=== PATIENT | male | born 1945 ===

== ENCOUNTER 2018-01-26 17:32 | Inpatient (IN) | payer MEDICARE, BC ==
[2018-01-26 17:38] VITALS: BMI 22.7
[2018-01-26 18:48] LABS: BASO % 0.4 % (0.0-2.0); EOS % 0.5 % (0.0-4.0); HEMOGLOBIN 14.4 g/dL (12.0-18.0); LYMPH # 1.8 K/uL (1.0-4.3); LYMPH % 19.3 % (20.0-40.0); MEAN CELL VOLUME 91.2 fl (80.0-94.0); MEAN CORPUSCULAR HEMOGLOBIN 30.6 pg (27.0-31.0); MEAN CORPUSCULAR HGB CONC 33.5 g/dL (33.0-37.0); MEAN PLATELET VOLUME 8.8 fl (7.2-11.7); MONO # 0.7 K/uL (0.0-0.8); MONO % 7.3 % (0.0-10.0); NEUT # 6.6 K/uL (1.8-7.0); NEUT % 72.5 % (50.0-75.0); RBC 4.71 Mil/uL (4.40-5.90); RED CELL DISTRIBUTION WIDTH 13.9 % (11.5-14.5); WHITE BLOOD COUNT 9.1 K/uL (4.8-10.8)
[2018-01-26 19:00] LABS: PARTIAL THROMBOPLASTIN TIME 42.2 Seconds (25.6-37.1); PROTHROMBIN TIME 10.8 Seconds (9.8-13.1)
[2018-01-26 19:03] LABS: ALB/GLOB RATIO 1.4 (1.0-2.1); ALBUMIN 3.8 g/dL (3.5-5.0); ALT/SGPT 47 U/L (21-72); AST/SGOT 47 U/L (17-59); BLOOD UREA NITROGEN 23 mg/dl (9-20); CALCIUM 9.5 mg/dL (8.4-10.2); GFR AFRICAN-AMERICAN > 60; GFR NON-AFRICAN AMERICAN 59
[2018-01-26 19:14] LABS: B-TYPE NATRIURETIC PEPTIDE 656 pg/ml (0-900)
--- NOTE | 2018-01-26 19:52 | ED PDOC ---
Syncope/Near Syncope/Dizziness Time Seen by Provider: 01/26/18 17:48 Chief Complaint (Nursing): Dizziness/Lightheaded Chief Complaint (Provider): syncope and palpitation History Per: Patient History/Exam Limitations: no limitations Onset/Duration Of Symptoms: Other (3 months) Current Symptoms Are (Timing): Still Present Additional Complaint(s): 72 year old male presents to the ED complaining of syncope and palpitation onset for 3 months. Patient states of 2 episodes of syncope with fast heat beat. Patient has generalized malaise, weakness, and fatigue when he takes a couple of steps. Denies chest pain or shortness of breath. PMD: Rich Sanchez Past Medical History Reviewed: Historical Data, Nursing Documentation, Vital Signs Vital Signs: Last Vital Signs Temp 98.1 F 01/26/18 17:38 Pulse 86 01/26/18 18:58 Resp 20 01/26/18 18:34 BP 148/98 H 01/26/18 18:58 Pulse Ox 100 01/26/18 18:34 - Medical History PMH: HTN - Surgical History Surgical History: No Surg Hx - Family History Family History: States: No Known Family Hx - Social History Current smoker - smoking cessation education provided: No - Home Medications Home Medications: Ambulatory Orders Medication Instructions Recorded Aspirin [Ecotrin] 81 mg PO DAILY 01/26/18 Cholecalciferol (Vitamin D3) 2,000 unit PO DAILY 01/26/18 [Vitamin D3] Clopidogrel [Plavix] 75 mg PO DAILY 01/26/18 Metoprolol Tartrate [Lopressor] 50 mg PO DAILY 01/26/18 Nitroglycerin [Nitrostat] 0.4 mg PO PRN PRN 01/26/18 - Allergies Allergies/Adverse Reactions: Allergies Allergy/AdvReac Type Severity Reaction Status Date / Time iodine Allergy RASH Verified 01/26/18 17:42 Review of Systems ROS Statement: Except As Marked, All Systems Reviewed And Found Negative (As per HPI, otherwise negative) Constitutional: Positive for: Weakness, Malaise Cardiovascular: Positive for: Palpitations. Negative for: Chest Pain Respiratory: Negative for: SOB with Exertion Neurological: Positive for: Other (syncope) Physical Exam - Reviewed Nursing Documentation Reviewed: Yes Vital Signs Reviewed: Yes - Physical Exam Appears: Positive for: Well, No Acute Distress Head Exam: Positive for: ATRAUMATIC, NORMOCEPHALIC Skin: Positive for: Warm, Dry Eye Exam: Positive for: EOMI, PERRL ENT: Negative for: Pharyngeal Erythema, Tonsillar Exudate Neck: Positive for: Painless ROM, Supple Cardiovascular/Chest: Positive for: Chest Non Tender, Tachycardia. Negative for : Murmur Respiratory: Positive for: Normal Breath Sounds. Negative for: Respiratory Distress Gastrointestinal/Abdominal: Positive for: Soft. Negative for: Tenderness Back: Positive for: Normal Inspection. Negative for: Decreased ROM Extremity: Positive for: Normal ROM. Negative for: Pedal Edema, Deformity Lymphatic: Negative for: Adenopathy Neurologic/Psych: Positive for: Alert. Negative for: Motor/Sensory Deficits - Laboratory Results Result Diagrams: 01/28/18 04:30 01/28/18 04:30 - ECG ECG: Positive for: Interpreted By Me, Viewed By Me ECG Rhythm: Positive for: Normal QRS, Normal ST Segment, Sinus Rhythm Rate: 89 O2 Sat by Pulse Oximetry: 100 (RA) Pulse Ox Interpretation: Normal - Radiology X-Ray: Interpreted by Me X-Ray Interpretation: No Acute Disease - Critical Care Total Time (In Min): 30 Documented Critical Care: Time excludes all time spent performint seperately billable procedures Medical Decision Making Medical Decision Making: Time: 1803 Initial Impression: syncope and palpitations Initial Plan: --BBK --EKG --B-type Natriuretic peptide --CMP --Magnesium --Phosphorous --Thyroid Stimulating hormone --Troponin I Q8H --ED Urine dipstick --CBC w/ Differential --PTT --Prothrombin Time --Chest portable --Glucose, POC --Cardizem 125mg IV 5 mg/hr --Lopressor 25mg --Reevaluation Time: 1829 Patient found to be in stable V-tach. He still has persistent light headedness. Denies chest pain of shortness of breath. Given syringe to blow into for vasalva maneuver which successfully converted patient to sinus. (?aberrant SVT or accessory path) Time: 1844 Repeated EKG presented to be sinus 89 bpm, normal ORS, normal ST segments. Dr. Padgett, hand mica plate layer contacted and discussed the findings and events. He advised patient to be started only on Metoprolol 25 mg PO. Diltiazem cancelled. Pt's labs unremarkable. DW Dr Bales for ICU placement for episodes of sustained Vtach. Scribe Attestation: Documented by Isabel Madera, acting as a scribe for Ana Laura Parra MD Provider Scribe Attestation: All medical record entries made by the Scribe were at my direction and personally dictated by me. I have reviewed the chart and agree that the record accurately reflects my personal performance of the history, physical exam, medical decision making, and the department course for this patient. I have also personally directed, reviewed, and agree with the discharge instructions and disposition. Disposition - Clinical Impression Clinical Impression: Paroxysmal A-fib, Syncope, Tachyarrhythmia Counseled Patient/Family Regarding: Studies Performed, Diagnosis - Disposition Disposition Time: 19:00 Condition: CRITICAL - Pt Status Changed To: Hospital Disposition Of: Inpatient - Admit Certification Admit to Inpatient:: After my assessment, the patient will require hospitalization for at least two midnights. This is because of the severity of symptoms shown, intensity of services needed, and/or the medical risk in this patient being treated as an outpatient. - POA Present On Arrival: Falls Or Trauma
--- NOTE | 2018-01-26 20:18 | CP.PCM.HP ---
History of Present Illness - History of Present Illness History of Present Illness: CC/Reason for ICU: V tach, syncope This is a 72 y/o male with HTN and likely CAD with possible recent NJ who comes in with palpitations and syncopal episodes. States he has had issues with syncope intermittently since about 2011, but then in Sep 2017, he had severe CP one day. He did not go to the ER at the time, but then went to a doctor who told him he likely had an NJ. Some cardiac w/u including possibly an echo was done at the time. Patient is unaware of results. Since about that time, the episodes of palpitations and syncope have been increasing; last 2 weeks he has had multiple episodes, and today he had two episodes, so he called EMS who brought him here. In ER patient was in a fib/flutter initially but then had an episode of V tach, then went into NSR. Patient states he has not had any CP/SOB with these episodes. He denies onset of symptoms with any particular activity. He has not fallen and hit his head. ROS: 14 systems reviewed, negative other than HPI MHx: HTN, likely CAD/NJ, possibly PAF SHx: None Allergies: CT dye Medications: Per med rec Family Hx: Cardiac disease runs strongly on both sides of family Social Hx: Lives alone, no tobacco, no EtOH Patient has not immediate family/surrogate dec maker nearby. Stated that he would like the following people notified with emergencies: Sue: [phone] Suyapa: [phone] Present on Admission - Present on Admission Any Indicators Present on Admission: No Past Patient History - Past Social History Smoking Status: Never Smoked - CARDIAC Hx Hypertension: Yes - PSYCHIATRIC Hx Substance Use: No - SURGICAL HISTORY Hx Surgeries: No - ANESTHESIA Hx Anesthesia: No Meds Allergies/Adverse Reactions: Allergies Allergy/AdvReac Type Severity Reaction Status Date / Time iodine Allergy RASH Verified 01/26/18 17:42 Physical Exam - Constitutional Appears: No Acute Distress - Head Exam Head Exam: ATRAUMATIC, NORMOCEPHALIC - Eye Exam Eye Exam: EOMI, PERRL - ENT Exam ENT Exam: Mucous Membranes Moist - Neck Exam Neck exam: Positive for: Full Rom - Respiratory Exam Respiratory Exam: Clear to Auscultation Bilateral, NORMAL BREATHING PATTERN - Cardiovascular Exam Cardiovascular Exam: REGULAR RHYTHM, +S1, +S2 - GI/Abdominal Exam GI & Abdominal Exam: Normal Bowel Sounds, Soft - Extremities Exam Extremities exam: Positive for: full ROM, normal inspection - Neurological Exam Neurological exam: Alert, CN II-XII Intact, Oriented x3 - Psychiatric Exam Psychiatric exam: Normal Affect, Normal Mood - Skin Skin Exam: Dry, Warm Results - Vital Signs Recent Vital Signs: Last Vital Signs Temp 98.1 F 01/26/18 17:38 Pulse 89 01/26/18 19:54 Resp 20 01/26/18 18:34 BP 148/98 H 01/26/18 18:58 Pulse Ox 100 01/26/18 19:54 - Labs Result Diagrams: 01/26/18 18:44 01/26/18 18:44 Labs: Laboratory Results - last 24 hr 01/26/18 01/26/18 01/26/18 18:07 18:35 18:44 WBC RBC Hgb Hct MCV MCH MCHC RDW Plt Count MPV Neut % (Auto) Lymph % (Auto) [place] % (Auto) Eos % (Auto) Baso % (Auto) Neut # (Auto) Lymph # (Auto) [place] # (Auto) Eos # (Auto) Baso # (Auto) PT INR APTT Sodium 141 Potassium 4.0 Chloride 104 Carbon Dioxide 24 Anion Gap 17 BUN 23 H Creatinine 1.2 Est GFR ( Amer) > 60 Est GFR (Non-Af Amer) 59 POC Glucose (mg/dL) 93 Random Glucose 95 Calcium 9.5 Phosphorus 2.8 Magnesium 2.0 Total Bilirubin 0.3 AST 47 ALT 47 Alkaline Phosphatase 67 Troponin I 0.0230 NT-Pro-B Natriuret Pep 656 Total Protein 6.5 Albumin 3.8 Globulin 2.7 Albumin/Globulin Ratio 1.4 TSH 3rd Generation 3.69 Blood Type O POSITIVE Antibody Screen Negative BBK History Checked No verified bt 01/26/18 01/26/18 18:44 18:44 WBC 9.1 RBC 4.71 Hgb 14.4 Hct 42.9 MCV 91.2 MCH 30.6 MCHC 33.5 RDW 13.9 Plt Count 286 MPV 8.8 Neut % (Auto) 72.5 Lymph % (Auto) 19.3 L [place] % (Auto) 7.3 Eos % (Auto) 0.5 Baso % (Auto) 0.4 Neut # (Auto) 6.6 Lymph # (Auto) 1.8 [place] # (Auto) 0.7 Eos # (Auto) 0.0 Baso # (Auto) 0.0 PT 10.8 INR 1.0 APTT 42.2 H Sodium Potassium Chloride Carbon Dioxide Anion Gap BUN Creatinine Est GFR ( Amer) Est GFR (Non-Af Amer) POC Glucose (mg/dL) Random Glucose Calcium Phosphorus Magnesium Total Bilirubin AST ALT Alkaline Phosphatase Troponin I NT-Pro-B Natriuret Pep Total Protein Albumin Globulin Albumin/Globulin Ratio TSH 3rd Generation Blood Type Antibody Screen BBK History Checked - EKG Data EKG Interpreted by: Myself - EKG Data EKG comments: rhythm strip showing monomophic V tach, EKG showing a flutter, and another showing NSR - Imaging and Cardiology Chest x-ray Status: Image reviewed by me (No acute findings) Assessment & Plan (1) Ventricular tachyarrhythmia Assessment and Plan: 72 y/o male with HTN and very likely CAD who comes in with A flutter which then degenerated briefly to what appeared to be V tach. -Admit ICU -Serial troponins -Continue metoprolol 25 PO BID -Cont ASA, Plavix; Patient should likely be on a statin as well -Echo in AM -Cardiology consult in AM -Cont home BP medications -SQ lovenox for DVT PPx Status: Acute (2) CAD (coronary artery disease) Status: Acute (3) HTN (hypertension) Status: Acute (4) DVT prophylaxis Status: Acute
--- NOTE | 2018-01-26 22:30 | CP.PCM.CON ---
History of Present Illness - History of Present Illness History of Present Illness: SYNCOPAL EPISODE TODAY X 1 WITH PALP. PT HAD 1 PRIOR IN 2011. WAS TOLD HE HAD AFIB IN 2011 AND STARTED ON BYSTOLIC. RECURRENT SYMPTOMS WITH ASSOCIATED CHEST PRESSURE 4 MONTHS AGO, PT THEN STARTED ON METOP 50 DAILY, ASA, PLAVIX AND SL NTG. ABOUT 1 WEEK AGO PT HAD CP RELIEVED BY NITRO. WHILE IN ER PT WAS IN AFIB WITH VARIABLE RATE. HE THEN HAD A SUSTAINED RAPID WCT AT 270 BPM. THIS RESOLVED ON OWN. PT WAS SYMPTOMATIC WITH DIZZINESS AND PALP. TELE STRIP IS SUSPICIOUS FOR VT. Past Patient History - Past Medical History & Family History Past Medical History?: Yes - Past Social History Smoking Status: Never Smoked - CARDIAC Hx Cardiac Disorders: Yes Hx Atrial Fibrillation: Yes Hx Hypertension: Yes - PULMONARY Hx Respiratory Disorders: No - NEUROLOGICAL Hx Syncope: Yes - HEENT Hx HEENT Problems: Yes Other/Comment: Uses eye glasses. - RENAL Hx Chronic Kidney Disease: No - ENDOCRINE/METABOLIC Hx Endocrine Disorders: No - HEMATOLOGICAL/ONCOLOGICAL Hx Blood Disorders: No - INTEGUMENTARY Hx Dermatological Problems: No - MUSCULOSKELETAL/RHEUMATOLOGICAL Hx Musculoskeletal Disorders: No Hx Falls: Yes - GASTROINTESTINAL Hx Gastrointestinal Disorders: No - GENITOURINARY/GYNECOLOGICAL Hx Genitourinary Disorders: No - PSYCHIATRIC Hx Psychophysiologic Disorder: No Hx Substance Use: No - SURGICAL HISTORY Hx Surgeries: No - ANESTHESIA Hx Anesthesia: No Hx Anesthesia Reactions: No Hx Malignant Hyperthermia: No Has any member of the family had a problem w/ anesthesia?: No Meds Allergies/Adverse Reactions: Allergies Allergy/AdvReac Type Severity Reaction Status Date / Time iodine Allergy RASH Verified 01/26/18 17:42 - Medications Medications: Current Medications Aspirin (Aspirin Chewable) 81 mg PO DAILY [facility] Clopidogrel Bisulfate (Plavix) 75 mg PO DAILY [facility] Enoxaparin Sodium (Lovenox) 40 mg SC DAILY [facility] PRN Reason: Protocol Metoprolol Tartrate (Lopressor) 25 mg PO Q12 [facility] Results - Vital Signs Recent Vital Signs: Last Vital Signs Temp 98.4 F 01/26/18 21:49 Pulse 65 01/26/18 21:52 Resp 18 01/26/18 21:52 BP 125/84 01/26/18 21:49 Pulse Ox 100 01/26/18 21:52 - Labs Result Diagrams: 01/26/18 18:44 01/26/18 18:44 Labs: Laboratory Results - last 24 hr 01/26/18 01/26/18 01/26/18 18:07 18:35 18:44 WBC RBC Hgb Hct MCV MCH MCHC RDW Plt Count MPV Neut % (Auto) Lymph % (Auto) [place] % (Auto) Eos % (Auto) Baso % (Auto) Neut # (Auto) Lymph # (Auto) [place] # (Auto) Eos # (Auto) Baso # (Auto) PT INR APTT Sodium 141 Potassium 4.0 Chloride 104 Carbon Dioxide 24 Anion Gap 17 BUN 23 H Creatinine 1.2 Est GFR ( Amer) > 60 Est GFR (Non-Af Amer) 59 POC Glucose (mg/dL) 93 Random Glucose 95 Calcium 9.5 Phosphorus 2.8 Magnesium 2.0 Total Bilirubin 0.3 AST 47 ALT 47 Alkaline Phosphatase 67 Troponin I 0.0230 NT-Pro-B Natriuret Pep 656 Total Protein 6.5 Albumin 3.8 Globulin 2.7 Albumin/Globulin Ratio 1.4 TSH 3rd Generation 3.69 Blood Type O POSITIVE Antibody Screen Negative BBK History Checked No verified bt 01/26/18 01/26/18 18:44 18:44 WBC 9.1 RBC 4.71 Hgb 14.4 Hct 42.9 MCV 91.2 MCH 30.6 MCHC 33.5 RDW 13.9 Plt Count 286 MPV 8.8 Neut % (Auto) 72.5 Lymph % (Auto) 19.3 L [place] % (Auto) 7.3 Eos % (Auto) 0.5 Baso % (Auto) 0.4 Neut # (Auto) 6.6 Lymph # (Auto) 1.8 [place] # (Auto) 0.7 Eos # (Auto) 0.0 Baso # (Auto) 0.0 PT 10.8 INR 1.0 APTT 42.2 H Sodium Potassium Chloride Carbon Dioxide Anion Gap BUN Creatinine Est GFR ( Amer) Est GFR (Non-Af Amer) POC Glucose (mg/dL) Random Glucose Calcium Phosphorus Magnesium Total Bilirubin AST ALT Alkaline Phosphatase Troponin I NT-Pro-B Natriuret Pep Total Protein Albumin Globulin Albumin/Globulin Ratio TSH 3rd Generation Blood Type Antibody Screen BBK History Checked Assessment & Plan (1) Ventricular tachyarrhythmia Status: Acute (2) Angina pectoris, variant Status: Acute (3) Paroxysmal A-fib Status: Acute (4) Palpitations Status: Acute (5) Syncope Status: Acute (6) HTN (hypertension) Status: Acute (7) Allergy to iodine Status: Acute - Assessment and Plan (Free Text) Plan: CONTINUE ICU CARE METOPROLOL 25 Q12 MAG 2GM IV REVIEWED TELE STRIPS. WCT QRS AROUND 150MS (MOST CW VT). MONITOR LYTES START FULL DOSE ANTICOAG CATH ON SUNDAY TO RULE OUT CAD ECHO ON SUNDAY TO EVAL EF NEEDS PREMED FOR CATH ON SUNDAY. 95 MIN ICU TIME
[2018-01-26] MEDS ORDERED: Magnesium Sulfate 2 gm/50 ml 2 GM/50 ML BAG IVPB ONE (22:59)
[2018-01-27 03:24] LABS: BLOOD UREA NITROGEN 19 mg/dl (9-20); CALCIUM 8.7 mg/dL (8.4-10.2); GFR AFRICAN-AMERICAN > 60; GFR NON-AFRICAN AMERICAN > 60
[2018-01-27 06:02] LABS: HEMOGLOBIN 13.9 g/dL (12.0-18.0); MEAN CELL VOLUME 91.7 fl (80.0-94.0); MEAN CORPUSCULAR HEMOGLOBIN 30.5 pg (27.0-31.0); MEAN CORPUSCULAR HGB CONC 33.2 g/dL (33.0-37.0); RBC 4.55 Mil/uL (4.40-5.90); RED CELL DISTRIBUTION WIDTH 13.6 % (11.5-14.5); WHITE BLOOD COUNT 7.5 K/uL (4.8-10.8)
--- NOTE | 2018-01-27 07:18 | CP.PCM.PN ---
Subjective - Date & Time of Evaluation Date of Evaluation: 01/27/18 Time of Evaluation: 07:14 - Subjective Subjective: pt states he feels improved, stronger than yesterday, all symptoms resolved no cp, no sob hD stable in NSR rate 60-65 nad Objective - Vital Signs/Intake and Output Vital Signs (last 24 hours): Temp Pulse Resp BP Pulse Ox 98.0 F 62 20 114/66 96 01/27/18 04:00 01/27/18 06:00 01/27/18 06:00 01/27/18 06:00 01/27/18 06:00 Intake and Output: 01/27/18 01/27/18 06:59 18:59 Intake Total 50 Output Total 400 Balance -350 Vitals Reviewed GEN: WDWN, alert, cooperative HEENT: NCAT, PERRL, EOMI HEART: RRR, +S1S2, NO MRG LUNG: CTAB, NO WRR ABD: soft, NT, ND, No HSM, No masses EXT: normal pedal pulses, normal capillary refill NEURO: awake, alert, no focal deficits SKIN: warm, dry PSYCH: normal mood, normal affect - Medications Medications: Current Medications Aspirin (Aspirin Chewable) 81 mg PO DAILY [facility] Clopidogrel Bisulfate (Plavix) 75 mg PO DAILY [facility] Enoxaparin Sodium (Lovenox) 70 mg SC Q12 [facility] PRN Reason: Protocol Metoprolol Tartrate (Lopressor) 25 mg PO Q12 [facility] - Labs Labs: 01/27/18 04:25 01/27/18 02:36 PT 10.8 Seconds (9.8-13.1) 01/26/18 18:44 INR 1.0 (0.9-1.2) 01/26/18 18:44 APTT 42.2 Seconds (25.6-37.1) H 01/26/18 18:44 Assessment and Plan - Assessment and Plan (Free Text) Plan: 72M PMH HTN and likely CAD with possible? recent ID who presented with palpitations and syncopal episodes. Pt has had hx of syncope intermittently since about 2011. Sep 2017, he had severe CP however did not go to the ER at the time, but then went to a doctor who told him he likely had an ID. No known cardiac work up. Since then, pt has had increased frequency of palpitations and syncope; last 2 weeks he has had multiple episodes, and prior to admission he had two episodes, so he called EMS who brought him here. In ER patient was in a fib/flutter initially but then had an episode of V tach, then converted to NSR. Patient states he has not had any CP/SOB with these episodes. He denies onset of symptoms with any particular activity. He has not fallen and hit his head. (1) Ventricular tachyarrhythmia -Serial troponins, neg x2 -Continue metoprolol 25 PO q12 -Cont ASA, Plavix, statin -Echo in AM -Cardiology consult in AM - Cath SUN - FULL AC for now with Lovenox - montior electrolytes (2) CAD (coronary artery disease) Status: Acute - cath on Sunday to evaluate (3) HTN (hypertension) Status: Acute - continue Lopressor (4) DVT prophylaxis pt on full AC
--- NOTE | 2018-01-27 07:32 | CP.PCM.CON ---
History of Present Illness - History of Present Illness History of Present Illness: 72 YOM with h/o CAD and HTN , came to ER with c/o dizziness and multiple episodes when he almost passed out. He resisted himself to go to hospital but when it felisha,e more frequent, he came to ER, where he had episodes of a fib- flutter and then a short burst of v-tach and then converted to SR. No CP, no fever or cough . He is now in SR and no ischemic changes in EKG and TNI, so far has been negative. Review of Systems - Review of Systems Systems not reviewed;Unavailable: Unstable Vital Signs - Constitutional Constitutional: As Per HPI - EENT Eyes: As Per HPI Nose/Mouth/Throat: As Per HPI - Cardiovascular Cardiovascular: Lightheadedness, Syncope - Respiratory Respiratory: As Per HPI - Gastrointestinal Gastrointestinal: As Per HPI - Genitourinary Genitourinary: As Per HPI - Reproductive: Male Reproductive:Male: As Per HPI - Musculoskeletal Musculoskeletal: As Per HPI Past Patient History - Past Medical History & Family History Past Medical History?: Yes - Past Social History Smoking Status: Never Smoked - CARDIAC Hx Cardiac Disorders: Yes Hx Atrial Fibrillation: Yes Hx Hypertension: Yes - PULMONARY Hx Respiratory Disorders: No - NEUROLOGICAL Hx Syncope: Yes - HEENT Hx HEENT Problems: Yes Other/Comment: Uses eye glasses. - RENAL Hx Chronic Kidney Disease: No - ENDOCRINE/METABOLIC Hx Endocrine Disorders: No - HEMATOLOGICAL/ONCOLOGICAL Hx Blood Disorders: No - INTEGUMENTARY Hx Dermatological Problems: No - MUSCULOSKELETAL/RHEUMATOLOGICAL Hx Musculoskeletal Disorders: No Hx Falls: Yes - GASTROINTESTINAL Hx Gastrointestinal Disorders: No - GENITOURINARY/GYNECOLOGICAL Hx Genitourinary Disorders: No - PSYCHIATRIC Hx Psychophysiologic Disorder: No Hx Substance Use: No - SURGICAL HISTORY Hx Surgeries: No - ANESTHESIA Hx Anesthesia: No Hx Anesthesia Reactions: No Hx Malignant Hyperthermia: No Has any member of the family had a problem w/ anesthesia?: No Meds Allergies/Adverse Reactions: Allergies Allergy/AdvReac Type Severity Reaction Status Date / Time iodine Allergy RASH Verified 01/26/18 17:42 - Medications Medications: Current Medications Aspirin (Aspirin Chewable) 81 mg PO DAILY [facility] Clopidogrel Bisulfate (Plavix) 75 mg PO DAILY [facility] Enoxaparin Sodium (Lovenox) 70 mg SC Q12 [facility] PRN Reason: Protocol Metoprolol Tartrate (Lopressor) 25 mg PO Q12 [facility] Physical Exam - Head Exam Head Exam: ATRAUMATIC - Eye Exam Pupil Exam: PERRL - ENT Exam ENT Exam: Mucous Membranes Moist - Neck Exam Neck exam: Positive for: Full Rom - Respiratory Exam Respiratory Exam: NORMAL BREATHING PATTERN - Cardiovascular Exam Cardiovascular Exam: Irregular Rhythm - Rectal Exam Rectal Exam: Deferred Results - Vital Signs Recent Vital Signs: Last Vital Signs Temp 98.0 F 01/27/18 04:00 Pulse 62 01/27/18 06:00 Resp 20 01/27/18 06:00 BP 114/66 01/27/18 06:00 Pulse Ox 96 01/27/18 06:00 - Labs Result Diagrams: 01/27/18 04:25 01/27/18 02:36 Labs: Laboratory Results - last 24 hr 01/26/18 01/26/18 01/26/18 18:07 18:35 18:44 WBC RBC Hgb Hct MCV MCH MCHC RDW Plt Count MPV Neut % (Auto) Lymph % (Auto) [place] % (Auto) Eos % (Auto) Baso % (Auto) Neut # (Auto) Lymph # (Auto) [place] # (Auto) Eos # (Auto) Baso # (Auto) PT INR APTT Sodium 141 Potassium 4.0 Chloride 104 Carbon Dioxide 24 Anion Gap 17 BUN 23 H Creatinine 1.2 Est GFR ( Amer) > 60 Est GFR (Non-Af Amer) 59 POC Glucose (mg/dL) 93 Random Glucose 95 Calcium 9.5 Phosphorus 2.8 Magnesium 2.0 Total Bilirubin 0.3 AST 47 ALT 47 Alkaline Phosphatase 67 Troponin I 0.0230 NT-Pro-B Natriuret Pep 656 Total Protein 6.5 Albumin 3.8 Globulin 2.7 Albumin/Globulin Ratio 1.4 Free T4 Total T3 TSH 3rd Generation 3.69 Blood Type O POSITIVE Blood Type Confirm Antibody Screen Negative BBK History Checked No verified bt 01/26/18 01/26/18 01/26/18 18:44 18:44 18:55 WBC 9.1 RBC 4.71 Hgb 14.4 Hct 42.9 MCV 91.2 MCH 30.6 MCHC 33.5 RDW 13.9 Plt Count 286 MPV 8.8 Neut % (Auto) 72.5 Lymph % (Auto) 19.3 L [place] % (Auto) 7.3 Eos % (Auto) 0.5 Baso % (Auto) 0.4 Neut # (Auto) 6.6 Lymph # (Auto) 1.8 [place] # (Auto) 0.7 Eos # (Auto) 0.0 Baso # (Auto) 0.0 PT 10.8 INR 1.0 APTT 42.2 H Sodium Potassium Chloride Carbon Dioxide Anion Gap BUN Creatinine Est GFR ( Amer) Est GFR (Non-Af Amer) POC Glucose (mg/dL) Random Glucose Calcium Phosphorus Magnesium Total Bilirubin AST ALT Alkaline Phosphatase Troponin I NT-Pro-B Natriuret Pep Total Protein Albumin Globulin Albumin/Globulin Ratio Free T4 Total T3 TSH 3rd Generation Blood Type Blood Type Confirm O POSITIVE Antibody Screen BBK History Checked 01/27/18 01/27/18 01/27/18 02:36 04:25 04:25 WBC 7.5 RBC 4.55 Hgb 13.9 Hct 41.7 MCV 91.7 MCH 30.5 MCHC 33.2 RDW 13.6 Plt Count 265 MPV Neut % (Auto) Lymph % (Auto) [place] % (Auto) Eos % (Auto) Baso % (Auto) Neut # (Auto) Lymph # (Auto) [place] # (Auto) Eos # (Auto) Baso # (Auto) PT INR APTT Sodium 140 Potassium 3.9 Chloride 105 Carbon Dioxide 25 Anion Gap 14 BUN 19 Creatinine 0.9 Est GFR ( Amer) > 60 Est GFR (Non-Af Amer) > 60 POC Glucose (mg/dL) Random Glucose 98 Calcium 8.7 Phosphorus Magnesium 2.7 H Total Bilirubin AST ALT Alkaline Phosphatase Troponin I 0.0620 NT-Pro-B Natriuret Pep Total Protein Albumin Globulin Albumin/Globulin Ratio Free T4 0.96 Total T3 0.910 L TSH 3rd Generation Blood Type Blood Type Confirm Antibody Screen BBK History Checked Assessment & Plan - Assessment and Plan (Free Text) Assessment: Syncope A fib-flutter and v-tach HTN Hypercholeteremia Plan: ON beta blockers monitor in ICU Lovenox treatment dose Cardiac consult Echo Plavix Echo.
[2018-01-27] MEDS: Enoxaparin 80 mg Syringe SC SCH ×2 (08:19→21:11)
[2018-01-27] MEDS ORDERED: Enoxaparin 40 mg Syringe SC SCH (09:00)
--- NOTE | 2018-01-27 09:37 | RAD ---
HISTORY: syncope COMPARISON: No prior. FINDINGS: LUNGS: Diffuse hyperinflation of the lungs is noted. No evidence of focal infiltration or consideration PLEURA: No significant pleural effusion identified, no pneumothorax apparent. CARDIOVASCULAR: Normal. OSSEOUS STRUCTURES: No significant abnormalities. VISUALIZED UPPER ABDOMEN: Normal. OTHER FINDINGS: None. IMPRESSION: No active disease.
[2018-01-28 05:28] LABS: HEMOGLOBIN 14.2 g/dL (12.0-18.0); MEAN CELL VOLUME 91.2 fl (80.0-94.0); MEAN CORPUSCULAR HEMOGLOBIN 31.4 pg (27.0-31.0); MEAN CORPUSCULAR HGB CONC 34.4 g/dL (33.0-37.0); RBC 4.52 Mil/uL (4.40-5.90); RED CELL DISTRIBUTION WIDTH 13.6 % (11.5-14.5); WHITE BLOOD COUNT 7.9 K/uL (4.8-10.8)
[2018-01-28 05:38] LABS: PARTIAL THROMBOPLASTIN TIME 58.7 Seconds (25.6-37.1); PROTHROMBIN TIME 11.4 Seconds (9.8-13.1)
[2018-01-28 05:42] LABS: BLOOD UREA NITROGEN 22 mg/dl (9-20); CALCIUM 8.9 mg/dL (8.4-10.2); GFR AFRICAN-AMERICAN > 60; GFR NON-AFRICAN AMERICAN 59
--- NOTE | 2018-01-28 07:26 | CP.PCM.PN ---
Subjective - Date & Time of Evaluation Date of Evaluation: 01/28/18 Time of Evaluation: 07:25 - Subjective Subjective: pt seen examined bedside states he feels improved no cp or sob for cath today at [facility] Objective - Vital Signs/Intake and Output Vital Signs (last 24 hours): Temp Pulse Resp BP Pulse Ox 98 F 53 L 16 130/71 97 01/28/18 04:00 01/28/18 04:00 01/28/18 04:00 01/28/18 04:00 01/28/18 04:00 Vitals Reviewed GEN: WDWN, alert, cooperative HEENT: NCAT, PERRL, EOMI HEART: RRR, +S1S2, NO MRG LUNG: CTAB, NO WRR ABD: soft, NT, ND, No HSM, No masses EXT: normal pedal pulses, normal capillary refill NEURO: awake, alert, no focal deficits SKIN: warm, dry PSYCH: normal mood, normal affect Intake and Output: 01/28/18 01/28/18 06:59 18:59 Intake Total 0 Balance 0 - Medications Medications: Current Medications Aspirin (Aspirin Chewable) 81 mg PO DAILY [facility] Last Admin: 01/27/18 08:18 Dose: 81 mg Atorvastatin Calcium (Lipitor) 20 mg PO HS [facility] Last Admin: 01/27/18 21:12 Dose: 20 mg Clopidogrel Bisulfate (Plavix) 75 mg PO DAILY [facility] Last Admin: 01/27/18 08:18 Dose: 75 mg Enoxaparin Sodium (Lovenox) 70 mg SC Q12 [facility] PRN Reason: Protocol Last Admin: 01/27/18 21:11 Dose: 70 mg Metoprolol Tartrate (Lopressor) 25 mg PO Q12 [facility] Last Admin: 01/27/18 21:13 Dose: 25 mg - Labs Labs: 01/28/18 04:30 01/28/18 04:30 PT 11.4 Seconds (9.8-13.1) 01/28/18 04:30 INR 1.0 (0.9-1.2) 01/28/18 04:30 APTT 58.7 Seconds (25.6-37.1) H D 01/28/18 04:30 Assessment and Plan - Assessment and Plan (Free Text) Plan: 72M PMH HTN and likely CAD with possible? recent NH who presented with palpitations and syncopal episodes. Pt has had hx of syncope intermittently since about 2011. Sep 2017, he had severe CP however did not go to the ER at the time, but then went to a doctor who told him he likely had an NH. No known cardiac work up. Since then, pt has had increased frequency of palpitations and syncope; last 2 weeks he has had multiple episodes, and prior to admission he had two episodes, so he called EMS who brought him here. In ER patient was in a fib/flutter initially but then had an episode of V tach, then converted to NSR. Patient states he has not had any CP/SOB with these episodes. He denies onset of symptoms with any particular activity. He has not fallen and hit his head. (1) Ventricular tachyarrhythmia -Serial troponins, neg x3 -Continue metoprolol 25 PO q12 -Cont ASA, Plavix, statin -Echo in AM -Cardiology consult in AM - Cath TODAY at [facility] - FULL AC for now with Lovenox - montior electrolytes (2) CAD (coronary artery disease) Status: Acute - cath on Sunday to evaluate (3) HTN (hypertension) Status: Acute - continue Lopressor (4) DVT prophylaxis pt on full AC
[2018-01-28] MEDS: Enoxaparin 80 mg Syringe SC SCH ×2 (08:30→21:26)
--- NOTE | 2018-01-28 14:31 | CARD ---
APPROVED REPORT EKG Measurement Heart [id number] <Conclusion> Atrial flutter with 2:1 AV conduction Left ventricular hypertrophy with repolarization abnormality Abnormal ECG
--- NOTE | 2018-01-28 14:31 | CARD ---
APPROVED REPORT EKG Measurement Heart [id number] <Conclusion> Atrial flutter with variable AV block Left axis deviation Left ventricular hypertrophy with repolarization abnormality Abnormal ECG
--- NOTE | 2018-01-28 14:41 | PQF GENQUE ---
Dr. Emanuel, Please clarify the type of atrial flutter:if known >> Atypical (Type II) >> Typical (Type I) >> Other (please specify type) >> Clinically unable to determine >> Unknown H and P: 72 y/o male with HTN and very likely CAD who comes in with A flutter which then degenerated briefly to what appeared to be V tach. This form is a permanent part of the medical record Clarification of your documentation is requested to better reflect the severity of illness and intensity of treatment of your patient. Indicators present [] Specify: [] [] Specify: [] [] Specify: [] [] Specify: [] Location in the medical record that reflects the above clinical findings: [] Treatment Provided: [] PHYSICIAN'S RESPONSE unknown Based on your medical judgment of the clinical indicators outlined above please clarify the following: [x] Practitioner response [] If unable to determine, please check the box, sign and date. Present On Admission (POA) Indicator: [x] Present at the time of admission [] Not present at the time of admission [] Clinically Undetermined In responding to this query, please exercise your independent professional judgment. The fact that a question is asked does not imply that any particular answer is desired or expected. Thank you for your clarification on this documentation. If you have any questions please call. * Thank you, Eunice Nguyen RN ext. #[phone] MTDD
--- NOTE | 2018-01-28 15:01 | CP.CCUPN ---
CCU Subjective - Physician Review Events Since Last Encounter (Free Text): 01/28/18 17:58 The patient was Seen/interviewed and examined by me at the bedside, Medical records reviewed and Management issues were discussed and formulated with the house staff. Events reviewed 72 Years old male with PMHx of HTN and CAD Who presented to ER with complaint of dizziness and multiple episodes when he almost passed out. In the Emergency department he had episodes of a fib-flutter and then a short burst of v-tach and then converted to SR. Found to have negative TNI and no ischemic changes in EKG She underwent cardiac Cath, returned to [facility] Pt Alert, follows some commands Denies any chest pain, SOB or Palpitations Afebrile, NSR on the monitor CCU Objective - Vital Signs / Intake & Output Vital Signs (Last 4 hours): Vital Signs Pulse Pulse Ox 01/28/18 14:49 89 100 Intake and Output (Last 8hrs): Intake & Output 01/28/18 01/28/18 01/28/18 06:59 14:59 22:59 Intake Total 0 Output Total 600 Balance 0 -600 Intake: IV 0 Output: Urine 600 Urine, Voided 600 - Physical Exam Head: Positive for: Atraumatic, Normocephalic Pupils: Positive for: PERRL Extroacular Muscles: Positive for: EOMI Mouth: Positive for: Moist Mucous Membranes Neck: Positive for: Normal Range of Motion, Trachea Midline. Negative for: Meningeal Signs, MIDLINE TENDERNESS, Paraspinal Tenderness, JVD, Lymphadenopathy , Bruit, Other Respiratory/Chest: Positive for: Clear to Auscultation, Good Air Exchange. Negative for: Respiratory Distress, Accessory Muscle Use, Wheezes, Decreased Breath Sounds, Rales Cardiovascular: Positive for: Regular Rate and Rhythm, Normal S1, S2. Negative for: Murmurs Abdomen: Positive for: Normal Bowel Sounds. Negative for: Tenderness, Distention - Medications Active Medications: Active Medications Generic Name Dose Route Start Last Admin Trade Name Freq PRN Reason Stop Dose Admin Aspirin 81 mg 01/27/18 09:00 01/28/18 08:24 Aspirin Chewable PO 81 mg DAILY [facility] Administration Atorvastatin Calcium 20 mg 01/27/18 22:00 01/27/18 21:12 Lipitor PO 20 mg HS NANCY Administration Clopidogrel Bisulfate 75 mg 01/27/18 09:00 01/28/18 08:24 Plavix PO 75 mg DAILY NANCY Administration Enoxaparin Sodium 70 mg 01/27/18 09:00 01/27/18 21:11 Lovenox SC 70 mg Q12 NANCY Administration Protocol Metoprolol Tartrate 25 mg 01/27/18 09:00 01/28/18 08:24 Lopressor PO Not Given Q12 NANCY - Patient Studies Lab Studies: Microbiology Studies 01/26/18 05:45 MRSA Culture (Admit) - Final Naris MRSA NOT DETECTED Lab Studies 01/28/18 01/28/18 01/28/18 Range/Units 04:30 04:30 04:30 WBC 7.9 (4.8-10.8) K/uL RBC 4.52 (4.40-5.90) Mil/uL Hgb 14.2 (12.0-18.0) g/dL Hct 41.2 (35.0-51.0) % MCV 91.2 (80.0-94.0) fl MCH 31.4 H (27.0-31.0) pg MCHC 34.4 (33.0-37.0) g/dL RDW 13.6 (11.5-14.5) % Plt Count 257 (130-400) K/uL PT 11.4 (9.8-13.1) Seconds INR 1.0 (0.9-1.2) APTT 58.7 H D (25.6-37.1) Seconds Sodium 140 (132-148) mmol/l Potassium 4.4 (3.6-5.0) MMOL/L Chloride 104 (98-107) mmol/L Carbon Dioxide 28 (22-30) mmol/L Anion Gap 12 (10-20) BUN 22 H (9-20) mg/dl Creatinine 1.2 (0.8-1.5) mg/dl Est GFR ( Amer) > 60 Est GFR (Non-Af Amer) 59 Random Glucose 93 (75-110) mg/dL Calcium 8.9 (8.4-10.2) mg/dL Phosphorus 3.0 (2.5-4.5) mg/dl Magnesium 2.3 (1.6-2.3) MG/DL Laboratory Results - last 24 hr 01/28/18 01/28/18 01/28/18 04:30 04:30 04:30 WBC 7.9 RBC 4.52 Hgb 14.2 Hct 41.2 MCV 91.2 MCH 31.4 H MCHC 34.4 RDW 13.6 Plt Count 257 PT 11.4 INR 1.0 APTT 58.7 H D Sodium 140 Potassium 4.4 Chloride 104 Carbon Dioxide 28 Anion Gap 12 BUN 22 H Creatinine 1.2 Est GFR ( Amer) > 60 Est GFR (Non-Af Amer) 59 Random Glucose 93 Calcium 8.9 Phosphorus 3.0 Magnesium 2.3 Fingerstick Blood Sugar Results: 93 Critical Care Progress Note - Nutrition Nutrition: Nutrition Category Date Time Status Heart Healthy Diet [DIET] Diets 01/26/18 Breakfast Active Assessment/Plan (1) Afib Current Visit: Yes Status: Acute (2) CAD (coronary artery disease) Current Visit: Yes Status: Acute (3) HTN (hypertension) Current Visit: Yes Status: Acute (4) Paroxysmal A-fib Current Visit: Yes Status: Acute (5) Syncope Current Visit: Yes Status: Acute (6) Ventricular tachyarrhythmia Current Visit: Yes Status: Acute - Assessment and Plan (Free Text) Assessment: Continue with ICU care for hemodynamic and cardiac monitoring. Continue ASA, Plavix, statins and Metoprolol Tartrate lovenox for full AC dose. ECHO Further work as per cardiology, based on the C Cath results.
[2018-01-29 05:51] LABS: HEMOGLOBIN 15.1 g/dL (12.0-18.0); MEAN CELL VOLUME 91.6 fl (80.0-94.0); MEAN CORPUSCULAR HEMOGLOBIN 30.7 pg (27.0-31.0); MEAN CORPUSCULAR HGB CONC 33.6 g/dL (33.0-37.0); RBC 4.9 Mil/uL (4.40-5.90); RED CELL DISTRIBUTION WIDTH 13.5 % (11.5-14.5); WHITE BLOOD COUNT 13.4 K/uL (4.8-10.8)
[2018-01-29 06:18] LABS: BLOOD UREA NITROGEN 27 mg/dl (9-20); CALCIUM 9.3 mg/dL (8.4-10.2); GFR AFRICAN-AMERICAN > 60; GFR NON-AFRICAN AMERICAN 54
[2018-01-29] MEDS: Enoxaparin 80 mg Syringe SC SCH ×2 (08:20→21:13)
--- NOTE | 2018-01-29 11:21 | CP.PCM.PN ---
Subjective - Date & Time of Evaluation Date of Evaluation: 01/29/18 Time of Evaluation: 11:00 - Subjective Subjective: Pt denies CP no SOB no abd pain no dizziness no further syncope in the Hospital Had cardiac cath yesterday at [facility] [place] Pt is requesting to have Chlamydiae test - he states he was previously positive and felt sick similar to how he feels lately- he would like to be assured that the Chlamydiae has been eradicated Denies any urethral discharge nor dysuria Objective - Vital Signs/Intake and Output Vital Signs (last 24 hours): Temp Pulse Resp BP Pulse Ox 97.9 F 40 L 12 125/60 97 01/29/18 08:00 01/29/18 08:00 01/29/18 08:00 01/29/18 08:00 01/29/18 08:00 Intake and Output: 01/29/18 01/29/18 06:59 18:59 Intake Total 220 Output Total 400 Balance -180 - Medications Medications: Current Medications Aspirin (Aspirin Chewable) 81 mg PO DAILY [facility] Last Admin: 01/29/18 08:20 Dose: 81 mg Atorvastatin Calcium (Lipitor) 20 mg PO HS [facility] Last Admin: 01/28/18 21:26 Dose: 20 mg Clopidogrel Bisulfate (Plavix) 75 mg PO DAILY [facility] Last Admin: 01/29/18 08:21 Dose: 75 mg Enoxaparin Sodium (Lovenox) 70 mg SC Q12 [facility] PRN Reason: Protocol Last Admin: 01/29/18 08:20 Dose: 70 mg Metoprolol Tartrate (Lopressor) 25 mg PO Q12H [facility] Last Admin: 01/29/18 06:06 Dose: 25 mg - Labs Labs: 01/29/18 04:40 01/29/18 04:40 PT 11.4 Seconds (9.8-13.1) 01/28/18 04:30 INR 1.0 (0.9-1.2) 01/28/18 04:30 APTT 58.7 Seconds (25.6-37.1) H D 01/28/18 04:30 - Constitutional Appears: Non-toxic, No Acute Distress - Head Exam Head Exam: ATRAUMATIC, NORMAL INSPECTION, NORMOCEPHALIC - Eye Exam Eye Exam: EOMI, Normal appearance Pupil Exam: NORMAL ACCOMODATION - ENT Exam ENT Exam: Mucous Membranes Moist, Normal External Ear Exam - Neck Exam Neck Exam: Full ROM. absent: Meningismus - Respiratory Exam Respiratory Exam: Rhonchi, NORMAL BREATHING PATTERN. absent: Rales, Wheezes, Respiratory Distress - Cardiovascular Exam Cardiovascular Exam: Bradycardia, Irregular Rhythm, +S1, +S2 - GI/Abdominal Exam GI & Abdominal Exam: Soft, Normal Bowel Sounds. absent: Tenderness - Extremities Exam Extremities Exam: Full ROM. absent: Calf Tenderness - Back Exam Back Exam: Full ROM. absent: CVA tenderness (L), CVA tenderness (R) - Neurological Exam Neurological Exam: Alert, Awake, CN II-XII Intact, Oriented x3 Neuro motor strength exam: Left Upper Extremity: 5, Right Upper Extremity: 5, Left Lower Extremity: 5, Right Lower Extremity: 5 - Psychiatric Exam Psychiatric exam: Normal Affect, Normal Mood - Skin Skin Exam: Dry, Normal Color, Warm Assessment and Plan - Assessment and Plan (Free Text) Assessment: 72M PMH HTN, CAD, and recurrent syncopal episodes, who presented with palpitations , followed by lightheadedness then had a Syncope. Pt has had hx of syncope intermittently since about 2011. Sep 2017, he had severe CP however did not go to the ER at the time, but then went to a doctor who told him he likely had an DE. No known cardiac work up. Since then, pt has had increased frequency of palpitations and syncope; last 2 weeks he has had multiple episodes , and prior to admission he had two episodes, so he called EMS who brought him here. In ER patient was in A fib/flutter initially but then had an episode of V tach , then converted to NSR. Patient states he has not had any CP/SOB with these episodes. He denies onset of symptoms with any particular activity. He has not fallen and hit his head. (1) Ventricular tachyarrhythmia -Serial troponins, neg x3 -Continue metoprolol 25 PO q12- hold for HR less than 60 -Cont ASA, Plavix, statin -Echo: Apical Hypokinesia, severe AR , Mod TR, EF =55% -Cardiology consulted- Dr Padgett did a Cardiac Cath yesterday - report , not in EMR - will discuss with him - Electrophysiology consult - Dr Barajas - TSH normal, electrolytes normal (2) CAD (coronary artery disease) Status: Acute - Trop x 3 negative -Cardiac cath done - await result - cont ASA, Plavix, statin, BB 3. A Fib /A Flutter , paroxysmal, now SR -cont Metoprolol - cont therapeutic Lovenox 4. recurrent Syncope likely due to Tachyarrythmia (5) HTN (hypertension) Status: Acute - continue Lopressor (6) DVT prophylaxis pt on Lovenox
--- NOTE | 2018-01-29 12:52 | CARD ---
APPROVED REPORT EXAM: Two-dimensional and M-mode echocardiogram with Doppler and color Doppler. Other Information Quality : GoodRhythm : NSR INDICATION Abnormal EKG/Arrhythmia 2D DIMENSIONS IVSd1.31 (0.7-1.1cm)LVDd4.88 (3.9-5.9cm) LVOT Diameter2.34 (1.8-2.4cm)PWd0.74 (0.7-1.1cm) IVSs1.38 (0.8-1.2cm)LVDs3.62 (2.5-4.0cm) FS (%) 25.7 %PWs1.29 (0.8-1.2cm) LVEF (%)55.0 (>50%) M-Mode DIMENSIONS Left Atrium (MM)4.25 (2.5-4.0cm)IVSd0.99 (0.7-1.1cm) Aortic Root3.14 (2.2-3.7cm)LVDd5.21 (4.0-5.6cm) Aortic Cusp Exc.2.04 (1.5-2.0cm)PWd0.72 (0.7-1.1cm) IVSs1.38 cmFS (%) 39 % LVDs3.17 (2.0-3.8cm)PWs1.16 cm Aortic Valve AI P 1/2 [id number] Mitral Valve MV E Kinddavq68.8cm/sMV DECEL [id number] A Tsonotgj36.3cm/s MV ENV19bkG/A ratio1.1MVA (PHT)2.86cm2 TDI Lateral E' Peak V9.04cm/sMedial E' Peak V5.87cm/sE/Lateral E'6.6 E/Medial E'10.2 Tricuspid Valve TR Peak Lzfuyxfr585qo/sRAP [id number] Peak Gr.26mmHg [id number] LEFT VENTRICLE The left ventricle is normal size. There is mild concentric left ventricular hypertrophy. The systolic function is mildly impaired. Apical hypokinesis Transmitral Doppler flow pattern is Grade I-abnormal relaxation pattern. RIGHT VENTRICLE The right ventricle is borderline dilated. There is normal right ventricular wall thickness. The right ventricular systolic function is normal. ATRIA The left atrium is mildly dilated. The right atrium is borderline dilated. AORTIC VALVE The aortic valve is mildly thickened. There is moderate to severe aortic regurgitation. There is no aortic valvular stenosis. MITRAL VALVE The mitral valve is mildly thickened. There is no mitral valve stenosis. Mitral regurgitation is mild. TRICUSPID VALVE The tricuspid valve is normal in structure. There is moderate tricuspid regurgitation. There is mild pulmonary hypertension. PULMONIC VALVE The pulmonary valve is normal in structure. There is no pulmonic valvular regurgitation. GREAT VESSELS The aortic root is normal in size. The IVC was not visualized. PERICARDIAL EFFUSION The pericardium appears normal. <Conclusion> The left ventricle is normal size. There is mild concentric left ventricular hypertrophy. The systolic function is mildly impaired. Apical hypokinesis Transmitral Doppler flow pattern is Grade I-abnormal relaxation pattern. There is moderate to severe aortic regurgitation. Mitral regurgitation is mild. There is moderate tricuspid regurgitation. There is mild pulmonary hypertension.
--- NOTE | 2018-01-29 16:24 | PN ---
DATE: 01/29/2018 CRITICAL CARE PROGRESS NOTE LOCATION: The patient in ICU, bed 431. TIME SPENT: 35 minutes. SUBJECTIVE: The patient is seen and evaluated at the bedside. Past medical, surgical, social, and family history were reviewed. Case discussed in a.m. ICU rounds. A 72-year-old male with hypertension with recurrent palpitation, syncopal episodes, admitted with episode of palpitation and syncopal episode. Noted to be in atrial fibrillation/flutter initially and then had an episode of ventricular tachycardia, converted to sinus rhythm with magnesium sulfate. Status post cardiac catheterization. No significant coronary artery disease, currently remains pain free. No shortness of breath, no palpitations. OBJECTIVE: VITAL SIGNS: Temperature 97.9; heart rate is varying from 40-65; blood pressure 125/60 with mean arterial pressure of 81; respiratory rate 12, thoracoabdominal; saturation 97%; telemetry atrial fibrillation. INTAKE AND OUTPUT: Intake 500, output of 1650, negative balance of 1150. Weight 145 pounds. HEENT: Pupils are reactive. Conjunctivae pink. Sclerae are white. NECK: Supple. Trachea central. CHEST: Bilateral breath sounds clear to auscultation. HEART: Rhythm is irregular. No audible murmur. ABDOMEN: Bowel sounds present. Soft. Liver and spleen not palpable. Bladder not distended. EXTREMITIES: Without clubbing, cyanosis or edema. NEUROLOGIC: Nonfocal. CURRENT MEDICATIONS: Include Lopressor 25 mg q.12h., Lovenox 70 subcu q.12h., Plavix 75 mg daily, Lipitor 20 mg daily, and aspirin 81 mg daily. LABORATORY DATA: WBC 13.4, hemoglobin 15.1, hematocrit 44.9, and platelet count 297,000. PT 11.4, INR 1, and PTT 58.7. SMA-7; sodium 142, potassium 4.2, chloride 102, CO2 29, BUN 27, creatinine 1.3, random glucose 119, calcium 9.3, phosphorus 4.4, and magnesium 2.2. Microbiology, MRSA nasal smear was negative. Echocardiogram, official report pending. Chest x-ray, no active disease. IMPRESSION AND PLAN: 1. Neuro: Status post syncopal episode. CT head is negative. 2. Recurrent atrial fibrillation with rapid ventricular response. Rate controlled on metoprolol. 3. Cardiac: Tachy-radha syndrome, status post cardiac cath, minimal coronary artery disease, awaiting echo report, on aspirin, Plavix, Lopressor, and Lipitor 20 mg daily due to bradycardia. Awaiting for Electrophysiology evaluation for permanent pacemaker insertion. 4. Pulmonary: No acute issues noted. 5. Hematology: Borderline leukocytosis status post cath, likely reactive. Closely monitor hemoglobin and hematocrit. Platelet count remains stable. No coagulopathy noted. Currently on Lovenox. 6. Renal: No acute issues. Monitor closely for electrolyte abnormalities. 7. Deep venous thrombosis and gastrointestinal prophylaxes: Keep head of bed 30 degrees up. Discontinue Rnig catheter. Can be considered for transfer to telemetry floor once seen by Electrophysiology consult. Avery Alba MD
--- NOTE | 2018-01-29 17:35 | CP.PCM.PN ---
Subjective - Date & Time of Evaluation Date of Evaluation: 01/29/18 Time of Evaluation: 17:34 - Subjective Subjective: no pain, erythema or swelling at cath site. no dizziness. had one episode of sig bradycardia while asleep. hr 37 bpm. continued sr with frequent pac's. Objective - Vital Signs/Intake and Output Vital Signs (last 24 hours): Temp Pulse Resp BP Pulse Ox 97.7 F 73 13 122/81 95 01/29/18 16:00 01/29/18 17:14 01/29/18 16:00 01/29/18 17:14 01/29/18 12:00 Intake and Output: 01/29/18 01/29/18 06:59 18:59 Intake Total 220 420 Output Total 400 350 Balance -180 70 - Medications Medications: Current Medications Aspirin (Aspirin Chewable) 81 mg PO DAILY [facility] Last Admin: 01/29/18 08:20 Dose: 81 mg Atorvastatin Calcium (Lipitor) 20 mg PO HS [facility] Last Admin: 01/28/18 21:26 Dose: 20 mg Clopidogrel Bisulfate (Plavix) 75 mg PO DAILY [facility] Last Admin: 01/29/18 08:21 Dose: 75 mg Enoxaparin Sodium (Lovenox) 70 mg SC Q12 [facility] PRN Reason: Protocol Last Admin: 01/29/18 08:20 Dose: 70 mg Metoprolol Tartrate (Lopressor) 25 mg PO Q12H [facility] Last Admin: 01/29/18 17:14 Dose: 25 mg - Labs Labs: 01/29/18 04:40 01/29/18 04:40 PT 11.4 Seconds (9.8-13.1) 01/28/18 04:30 INR 1.0 (0.9-1.2) 01/28/18 04:30 APTT 58.7 Seconds (25.6-37.1) H D 01/28/18 04:30 - Constitutional Appears: Well - Head Exam Head Exam: ATRAUMATIC, NORMAL INSPECTION, NORMOCEPHALIC - Eye Exam Eye Exam: EOMI, Normal appearance, PERRL. absent: Conjunctival injection, Nystagmus, Periorbital swelling, Periorbital tenderness, Scleral icterus Pupil Exam: NORMAL ACCOMODATION, PERRL - ENT Exam ENT Exam: Mucous Membranes Moist, Normal Exam. absent: Mucous Membranes Dry, Normal External Ear Exam, Normal Oropharynx, TM's Normal Bilaterally - Neck Exam Neck Exam: Full ROM, Normal Inspection. absent: Lymphadenopathy, Meningismus, Tenderness, Thyromegaly - Respiratory Exam Respiratory Exam: Clear to Ausculation Bilateral, NORMAL BREATHING PATTERN. absent: Accessory Muscle Use, Chest Wall Tenderness, Decreased Breath Sounds, Prolonged Expiratory Phase, Rales, Rhonchi, Wheezes, Respiratory Distress, Stridor - Cardiovascular Exam Cardiovascular Exam: Bradycardia, Irregular Rhythm, +S1, +S2, Murmur. absent: Tachycardia, Clicks, Diastolic murmur, Gallop, REGULAR RHYTHM, JVD, RRR, Rubs, + S4 - GI/Abdominal Exam GI & Abdominal Exam: Soft, Normal Bowel Sounds. absent: Bruit, Distended, Firm , Guarding, Rigid, Tenderness, Diminished Bowel Sounds, Hernia, Hyperactive Bowel Sounds, Hypoactive Bowel Sounds, Organomegaly, Pulsatile Mass, Rebound, Mass - Rectal Exam Rectal Exam: Deferred - Extremities Exam Extremities Exam: Full ROM, Normal Capillary Refill, Normal Inspection. absent : Calf Tenderness, Joint Swelling, Pedal Edema, Tenderness - Back Exam Back Exam: NORMAL INSPECTION. absent: CVA tenderness (L), CVA tenderness (R), Full ROM, muscle spasm, paraspinal tenderness, rash noted, tenderness, vertebral tenderness - Neurological Exam Neurological Exam: Alert, Awake, CN II-XII Intact, Normal Gait, Oriented x3. absent: Abnormal Gait, Altered, Motor Sensory Deficit, Reflexes Normal - Psychiatric Exam Psychiatric exam: Normal Affect, Normal Mood. absent: Agitated, Anxious, Depressed, Flat Affect, Homicidal Ideation, Manic, Suicidal Ideation - Skin Skin Exam: Dry, Intact, Normal Color, Warm. 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 ASA 81mg pt with iodine allergy limiting amiodarone use. d/w pt at length.
--- NOTE | 2018-01-30 03:10 | CON ---
INPATIENT ELECTROPHYSIOLOGY CONSULTATION DATE: 01/29/2018 REFERRING DUST COLLECTOR OPERATOR: Eleni Padgett DO REASON FOR EVALUATION: 1. Ventricular tachycardia/wide complex tachycardia. 2. Atrial flutter with rapid ventricular response. 3. Bradycardia/sick sinus syndrome. Thank you very much for this consult. HISTORY OF PRESENT ILLNESS: Mr. Osvaldo Pendleton is a 72-year-old [place] male with past medical history significant for syncope and atrial fibrillation, who initially presented on the day of admission, 01/27/2018 with syncopal episode with associated palpitations. The patient was seen by Dr. Eleni Padgett of the General Cardiology Service. At that time, initially, the patient was found to be in atrial fibrillation with intermittent rapid rate. The patient does have a history of syncope and atrial fibrillation as per the electronic medical records. Initially, he was started on Bystolic and then had discontinued, he was then subsequently started on metoprolol 50 mg daily along with aspirin and Plavix and sublingual nitroglycerin. The patient claims to be compliant with medications. During his hospitalization, he was also found to have an episode of wide complex tachycardia, which was relatively short lived, but did reach the heart rates approximately greater than 200 beats per minute. Telemetry strips will be reviewed further on in this consultation. PAST MEDICAL HISTORY: As mentioned in the history of present illness. Prior to this episode, the patient claims they have been ''completely healthy." PHYSICAL EXAMINATION: VITAL SIGNS: The patient is afebrile 97.6, heart rate of 50, and blood pressure is 113/52. GENERAL: He is a very pleasant, very thin, somewhat tall, male in no acute distress and able to speak in complete sentences. HEENT: Head is normocephalic and atraumatic. There is no tang facial asymmetry. CHEST: Clear to auscultation bilaterally. CARDIOVASCULAR: Regular rate and rhythm. S1 and S2. No S3 or S4. ABDOMEN: Soft, nontender, and nondistended. Positive bowel sounds. LABORATORY DATA: Initial lab work, the patient appears to have baseline normal renal function with a BUN and creatinine of 23 and 1.2 and glucose of 95. The patient does not appear to be anemic. LFTs are within normal limits. Thyroid panel also is within normal limits. The patient is O+ blood. ASSESSMENT AND PLAN: 1. Sick sinus syndrome. The patient has evidence of tachybrady syndrome. At this point, the patient is on minimal beta-blockade with current dosing 12.5 mg p.o. b.i.d with resting bradycardia. The dose is not likely to control the wide complex tachycardia, which is previously noted which may be consistent with ventricular tachycardia not likely to control atrial flutter if and when that does happen. At this point, the very least patient would benefit from a permanent pacemaker to provide chronotropic support for further medical management. The presence of wide complex tachycardia that was previously noted on telemetry does not appear to be consistent and differs from intrinsically conducted beats, again cannot rule out true ventricular tachycardia. In addition alternatively, the patient may have atrial flutter with rapid ventricular response; however, it is difficult to prove this, but I doubt this to be the case. Aside from the option of a pacemaker and medical management , the patient may elect to undergo electrophysiology study to rule out the presence of ventricular tachycardia to see if that is inducible. If he is inducible or felt to be high risk, he may be a candidate for a defibrillator. At this point, it is unclear whether tachycardia or bradycardia caused his recurrent syncopal/presyncopal episodes. 2. Atrial flutter. The patient had clear atrial flutter on admission, the patient should be considered for anticoagulation with the KATERINA-VASc score of at least 2. Daily stroke risk was also discussed with the patient, he is agreeable and understanding the long-term anticoagulation more likely be beneficial and prevent ischemic strokes. With the aformentioned rhythm disturbance, syncope/fall on AC is dangerous. 3. Wide complex tachycardia, which may be consistent with true ventricular tachycardia. Alternately, this could be atrial flutter with aberrancy. There is no tang pre-excitation of baseline 12-lead EKG. Again, would potentially maximize beta-pablo therapy with a permanent pacemaker in place for chronotropic support. He will strongly consider these recommendations. He does, at this point, appear to be intent on discharge from the hospital and possible ischemic stroke. If he is agreeable, the patient may then be a candidate for an atrial flutter/ablation. The patient is aware of the detailed discussion. All questions were answered. At this time, the patient appears to be intent on again hospital discharge and follow up with a second opinion, I advised him that chronotropic support is very necessary whether or not he undergoes electrophysiology study this a.m. with certainly permanent pacemaker would be advisable. If he refuses a pacemaker, would continue on low-dose beta-pablo, which may or may not be able to control his arrhythmias. Thank you for allowing me to participate in the care of your patient. Please do not hesitate to call for any questions with regards to his care. Time spent in evaluation and coordination of care greater than 60 minutes. Bandar Barajas MD cc: Eleni Padgett DO MTDD
[2018-01-30 05:45] LABS: BLOOD UREA NITROGEN 29 mg/dl (9-20); CALCIUM 8.9 mg/dL (8.4-10.2); GFR AFRICAN-AMERICAN > 60; GFR NON-AFRICAN AMERICAN > 60
[2018-01-30 05:47] LABS: HEMOGLOBIN 14.5 g/dL (12.0-18.0); MEAN CELL VOLUME 91.2 fl (80.0-94.0); MEAN CORPUSCULAR HEMOGLOBIN 30.5 pg (27.0-31.0); MEAN CORPUSCULAR HGB CONC 33.4 g/dL (33.0-37.0); RBC 4.76 Mil/uL (4.40-5.90); RED CELL DISTRIBUTION WIDTH 13.8 % (11.5-14.5); WHITE BLOOD COUNT 13.3 K/uL (4.8-10.8)
[2018-01-30 08:52] VITALS: TEMP 98
[2018-01-30] MEDS: Enoxaparin 80 mg Syringe SC SCH (08:54)
[2018-01-30 10:20] VITALS: RESP 15; O2SAT 98
--- NOTE | 2018-01-30 11:12 | CP.PCM.DIS ---
Provider - Provider Date of Admission: 01/26/18 20:12 Attending physician: Francesco Bales MD Primary care physician: Dr Sanchez Consults: Cardio: Dr Padgett Electrophysiology: Dr Barajas Time Spent in preparation of Discharge (in minutes): 45 Diagnosis - Discharge Diagnosis (1) Sick sinus syndrome Status: Acute (2) Paroxysmal A-fib Status: Acute (3) Ventricular tachyarrhythmia Status: Acute (4) Wide-complex tachycardia Status: Acute (5) Syncope Status: Acute (6) HTN (hypertension) Status: Chronic (7) DVT prophylaxis Status: Acute Hospital Course - Lab Results Lab Results: Micro Results 01/26/18 05:45 Naris MRSA Culture (Admit) - Final MRSA NOT DETECTED Most Recent Lab Values WBC 13.3 K/uL (4.8-10.8) H 01/30/18 04:40 RBC 4.76 Mil/uL (4.40-5.90) 01/30/18 04:40 Hgb 14.5 g/dL (12.0-18.0) 01/30/18 04:40 Hct 43.4 % (35.0-51.0) 01/30/18 04:40 MCV 91.2 fl (80.0-94.0) 01/30/18 04:40 MCH 30.5 pg (27.0-31.0) 01/30/18 04:40 MCHC 33.4 g/dL (33.0-37.0) 01/30/18 04:40 RDW 13.8 % (11.5-14.5) 01/30/18 04:40 Plt Count 252 K/uL (130-400) 01/30/18 04:40 MPV 8.8 fl (7.2-11.7) 01/26/18 18:44 Neut % (Auto) 72.5 % (50.0-75.0) 01/26/18 18:44 Lymph % (Auto) 19.3 % (20.0-40.0) L 01/26/18 18:44 Starke % (Auto) 7.3 % (0.0-10.0) 01/26/18 18:44 Eos % (Auto) 0.5 % (0.0-4.0) 01/26/18 18:44 Baso % (Auto) 0.4 % (0.0-2.0) 01/26/18 18:44 Neut # (Auto) 6.6 K/uL (1.8-7.0) 01/26/18 18:44 Lymph # (Auto) 1.8 K/uL (1.0-4.3) 01/26/18 18:44 Starke # (Auto) 0.7 K/uL (0.0-0.8) 01/26/18 18:44 Eos # (Auto) 0.0 K/uL (0.0-0.7) 01/26/18 18:44 Baso # (Auto) 0.0 K/uL (0.0-0.2) 01/26/18 18:44 PT 11.4 Seconds (9.8-13.1) 01/28/18 04:30 INR 1.0 (0.9-1.2) 01/28/18 04:30 APTT 58.7 Seconds (25.6-37.1) H D 01/28/18 04:30 Sodium 139 mmol/l (132-148) 01/30/18 04:40 Potassium 3.9 MMOL/L (3.6-5.0) 01/30/18 04:40 Chloride 104 mmol/L (98-107) 01/30/18 04:40 Carbon Dioxide 28 mmol/L (22-30) 01/30/18 04:40 Anion Gap 11 (10-20) 01/30/18 04:40 BUN 29 mg/dl (9-20) H 01/30/18 04:40 Creatinine 1.1 mg/dl (0.8-1.5) 01/30/18 04:40 Est GFR ( Amer) > 60 01/30/18 04:40 Est GFR (Non-Af Amer) > 60 01/30/18 04:40 POC Glucose (mg/dL) 93 mg/dL (65-110) 01/26/18 18:07 Random Glucose 91 mg/dL (75-110) 01/30/18 04:40 Calcium 8.9 mg/dL (8.4-10.2) 01/30/18 04:40 Phosphorus 4.4 mg/dl (2.5-4.5) 01/29/18 04:40 Magnesium 2.1 MG/DL (1.6-2.3) 01/30/18 04:40 Total Bilirubin 0.3 mg/dl (0.2-1.3) 01/26/18 18:44 AST 47 U/L (17-59) 01/26/18 18:44 ALT 47 U/L (21-72) 01/26/18 18:44 Alkaline Phosphatase 67 U/L (38-126) 01/26/18 18:44 Troponin I 0.0430 ng/mL (0.00-0.120) 01/27/18 10:05 NT-Pro-B Natriuret Pep 656 pg/ml (0-900) 01/26/18 18:44 Total Protein 6.5 G/DL (6.3-8.2) 01/26/18 18:44 Albumin 3.8 g/dL (3.5-5.0) 01/26/18 18:44 Globulin 2.7 gm/dL (2.2-3.9) 01/26/18 18:44 Albumin/Globulin Ratio 1.4 (1.0-2.1) 01/26/18 18:44 Free T4 0.96 ng/dL (0.78-2.19) 01/27/18 04:25 Total T3 0.910 nmol/L (1.49-2.60) L 01/27/18 02:36 TSH 3rd Generation 3.69 mIU/ML (0.46-4.68) 01/26/18 18:44 Blood Type O POSITIVE 01/26/18 18:35 Blood Type Confirm O POSITIVE 01/26/18 18:55 Antibody Screen Negative 01/26/18 18:35 BBK History Checked No verified bt 01/26/18 18:35 - Hospital Course Hospital Course: 72M PMH HTN, CAD, and recurrent syncopal episodes, who presented with palpitations , followed by lightheadedness then had a Syncope. Pt has had hx of syncope intermittently since about 2011. Sep 2017, he had severe CP however did not go to the ER at the time, but then went to a doctor who told him he likely had an AL. No known cardiac work up. Since then, pt has had increased frequency of palpitations and syncope; last 2 weeks he has had multiple episodes , and prior to admission he had two episodes, so he called EMS who brought him here. In ER patient was in A fib/flutter initially but then had an episode of V tach , that converted to NSR. Patient states he has not had any CP/SOB with these episodes. He denies onset of symptoms with any particular activity. He has not fallen nor hit his head. He was admitted to ICU and monitored closely. He was started on therapeutic anticoagulation. Cardio was consulted - Dr Padgett and went for Cardiac catheterization- noted was about 30 % stenosis of the LAD and Circumflex , no stent placed. Barber Stylist - Dr Barajas also consulted and rec Electrophysiologic studies and Pacemaker/AICD placement . The patient was hesitant to have the procedure and wanted the this done as outpt after discussing this with his Primary Care Physician - Dr Sanchez . He refused to stay in the hospital and wanted to be d/c home. Dr Padgett cleared pt for discharge however recommended decreasing his Metoprolol to 25 XL daily and to cont with ASA, no anticoagulation obec of his frequent history of Syncope. Pt had requested a Chlamydia test done bec of previous hx - test done , result pending - pt to ff up result with his PMD (1) Ventricular tachyarrhythmia/Wide Complex Tachycardia -Serial troponin - neg x3 -Continue Toprol XL 25 mg daily -Cont ASA, statin -Echo: Apical Hypokinesia, severe AR , Mod TR, EF =55% -Cardiology consulted- Dr Padgett did a Cardiac Cath - Electrophysiology consulted - Dr Barajas- plan for Electrophysiologic studies and Pacemaker /AICD as outpt - TSH normal, electrolytes normal (2) CAD (coronary artery disease) Status: Acute - Trop x 3 negative -Cardiac cath done - mild stenosis , no stent placed - cont ASA, Plavix, statin, BB 3. A Fib /A Flutter , paroxysmal/Sick Sinus Syndrome -cont Metoprolol - dcrease to 25 mg daily - as per Dr Padgett - no anticoagulation due to pt's hx of recurrent syncope/fall - outpt Pacemenker placement 4. recurrent Syncope likely due to Tachyarrythmia (5) HTN (hypertension) Status: Acute - continue Lopressor (6) DVT prophylaxis pt on Lovenox Discharge Exam - Head Exam Head Exam: ATRAUMATIC, NORMAL INSPECTION, NORMOCEPHALIC - Eye Exam Eye Exam: EOMI, Normal appearance Pupil Exam: NORMAL ACCOMODATION - ENT Exam ENT Exam: Mucous Membranes Moist, Normal External Ear Exam - Neck Exam Neck exam: Full Rom - Respiratory Exam Respiratory Exam: NORMAL BREATHING PATTERN. absent: Respiratory Distress - Cardiovascular Exam Cardiovascular Exam: Irregular Rhythm, +S1, +S2 - GI/Abdominal Exam GI & Abdominal Exam: Normal Bowel Sounds, Soft. absent: Tenderness - Extremities Exam Extremities exam: full ROM, normal capillary refill, pedal pulses present - Back Exam Back exam: FULL ROM. absent: CVA tenderness (L), CVA tenderness (R) - Neurological Exam Neurological exam: Alert, CN II-XII Intact, Oriented x3, Reflexes Normal - Psychiatric Exam Psychiatric exam: Normal Affect, Normal Mood - Skin Skin Exam: Dry, Normal Color, Warm Discharge Plan - Discharge Medications Prescriptions: Atorvastatin [Lipitor] 20 mg PO HS #30 tab Metoprolol Succinate XL [Toprol XL] 25 mg PO BRK #30 tab - Follow Up Plan Condition: STABLE Disposition: HOME/ ROUTINE Instructions: Arrhythmias Additional Instructions: ff up with Dr Daniel heath this week appt with Dr Barajas in [address] Dayron heath Referrals: Bandar Barajas MD [Staff Provider] - Eleni Padgett MD [Staff Provider] - Rich Sanchez MD [Family Provider] -
[2018-01-30 11:16] VITALS: BP 121/76; PULSE 68
== END 2018-01-30 12:00 | disposition home or self-care (01) | DRG 309 ==
LOC: H.ER 17:32 → H.ERHOLD 20:12 → H.ICU/CCU 21:51
PROVIDERS: ADMIT Internal Medicine; ATTEND Internal Medicine
DX: I49.5 Sick sinus syndrome (principal); I47.2 Ventricular tachycardia; I48.92 Unspecified atrial flutter; I48.0 Paroxysmal atrial fibrillation; Z79.02 Long term (current) use of antithrombotics/antiplatelets; Z79.82 Long term (current) use of aspirin; Z91.041 Radiographic dye allergy status; Z79.899 Other long term (current) drug therapy; R00.2 Palpitations; D72.829 Elevated white blood cell count, unspecified; I10 Essential (primary) hypertension; I25.111 Atherosclerotic heart disease of native coronary artery with angina pectoris with documented spasm